=== PATIENT | female | born 1930 | race Two or more races ===

== ENCOUNTER 2020-12-11 11:06 | Emergency (ER) | payer SELFPAY ==
[~2020-12-11] VITALS: Ht 172.7 cm; Wt 72.6 kg
[2020-12-11 11:13] VITALS: BP 95/49
== END 2020-12-11 13:18 | disposition left against medical advice (07) ==
LOC: ER 11:06
DX: R55 Syncope and collapse (principal); I10 Essential (primary) hypertension; Z53.29 Procedure and treatment not carried out because of patient's decision for other reasons
CPT/HCPCS: 36415; 93005